=== PATIENT | female | born 1995 | race African-American/Black ===

== ENCOUNTER 2017-12-25 08:19 | Emergency (ER) | payer OTHER ==
[~2017-12-25] VITALS: Ht 154.9 cm; Wt 67.6 kg
== END 2017-12-25 09:28 | disposition home or self-care (01) ==
LOC: ER 08:19
DX: S61.233A Puncture wound without foreign body of left middle finger without damage to nail, initial encounter (principal); W46.0XXA Contact with hypodermic needle, initial encounter; Y93.89 Activity, other specified; Y92.69 Other specified industrial and construction area as the place of occurrence of the external cause; Y99.8 Other external cause status